=== PATIENT | male | born 1980 | race Caucasian/White ===

== ENCOUNTER 2022-08-14 15:53 | Emergency (ER) | payer SELFPAY ==
[2022-08-14] MEDS ORDERED: Lactated Ringers 1,000 ML IV ONE (16:22)
[2022-08-14] MEDS ORDERED: Ketorolac 15 MG/ML SDV IVPUSH ONE (17:23)
[2022-08-14] MEDS ORDERED: Sodium Chloride 0.9% 1,000 ML IV ONE (17:28)
[2022-08-14] MEDS ORDERED: Potassium Chloride 20 MEQ Tab.ER PO ONE (17:39)
[2022-08-14] MEDS ORDERED: Piperacillin/Tazobactam 4.5 GM in Sodium Chloride 0.9% 100 ML IV ONE (17:40)
[2022-08-14] MEDS ORDERED: Magnesium Sulfate/Water 2 GM in Premix Bag 1 BAG IV ONE (17:40)
[2022-08-14] MEDS ORDERED: Sodium Chloride 0.9% 10 ML Syringe FLUSH ONE (17:55)
[2022-08-14] MEDS ORDERED: Iopamidol 612 MG/ML 100 ML Bottle IVPUSH ONE ×2 (17:55→19:59)
[2022-08-14] MEDS ORDERED: propofoL 100 ML ONE (18:16)
[2022-08-14] MEDS ORDERED: Rocuronium 50 MG/5 ML Vial IVPUSH ONE (18:54)
[2022-08-14] MEDS ORDERED: Etomidate 2 MG/ML 20 ML SDV IVPUSH ONE (18:55)
[2022-08-14] MEDS ORDERED: Sodium Chloride 0.9% 1,000 ML ONE (19:06)
[2022-08-14] MEDS ORDERED: Sodium Bicarbonate 8.4% 50 MEQ/50 ML Syringe IVPUSH ONE (19:09)
[2022-08-14] MEDS ORDERED: Sodium Bicarbonate 8.4% 50 MEQ/50 ML SDV ONE (19:12)
[2022-08-14] MEDS ORDERED: Dextrose 5% in Water 1,000 ML ONE (19:12)
[2022-08-14] MEDS ORDERED: Sodium Bicarbonate 150 MEQ in Dextrose 5% in Water 1,000 ML IV SCH ×2 (19:45)
[2022-08-14] MEDS ORDERED: Levofloxacin/Dextrose 5%-Water 750 MG in Premix Bag 1 BAG IV ONE (19:49)
[2022-08-14] MEDS ORDERED: Vancomycin 2 GM in Sodium Chloride 0.9% 500 ML IV ONE (19:50)
[2022-08-14] MEDS ORDERED: Iopamidol 612 MG/ML 50 ML SDV IVPUSH ONE (19:59)
[2022-08-14] MEDS: Potassium Chloride 10 MEQ in Premix Bag 1 BAG IV SCH ×4 (20:41→23:36)
[2022-08-14] MEDS: propofoL 100 ML IV SCH (21:06)
[2022-08-14] MEDS ORDERED: Dextrose 5%-0.45% NaCl 1,000 ML IV SCH (21:15)
[2022-08-15] MEDS: propofoL 100 ML IV SCH (00:14)
== END 2022-08-15 00:56 ==
LOC: JD.ED 15:53
DX: A41.9 Sepsis, unspecified organism (principal); E11.10 Type 2 diabetes mellitus with ketoacidosis without coma; J96.00 Acute respiratory failure, unspecified whether with hypoxia or hypercapnia; E87.6 Hypokalemia; N49.3 Fournier gangrene; M86.172 Other acute osteomyelitis, left ankle and foot; Z79.899 Other long term (current) drug therapy; Z20.822 Contact with and (suspected) exposure to COVID-19
CPT/HCPCS: 31500; 36415; 36556; 36600; 43752; 51702; 70450; 71045; 71260; 73701; 74177; 80053; 80306; 80307; 82009; 82803; 82947; 83605; 83690; 83735; 85025; 85610; 87040; 87077; 87154; 87186; 87635; 96361; 96365; 96366; 96367; 96368; 96375; 99285; J1885; J1956; J2543; J2704; J3370; J3475; J3480; J3490; J7030; J7040; J7042; J7060; J7120; Q9967; 93010; 99291; U0002

== ENCOUNTER 2023-04-26 10:05 | Inpatient (IN) | payer BC, MEDICAID ==
[2023-04-26] MEDS ORDERED: Acetaminophen 325 MG Tab PO SCH (10:30)
[2023-04-26] MEDS ORDERED: Gabapentin 300 MG Cap PO SCH (10:30)
[2023-04-26] MEDS ORDERED: metroNIDAZOLE/Normal Saline 500 MG in Premix Bag 1 BAG IV SCH (10:30)
[2023-04-26] MEDS ORDERED: Lidocaine 1%/Sod Bicarbonate in NS 8.4% 1 ML Syringe IDERM PRN (10:52)
[2023-04-26] MEDS ORDERED: Sodium Chloride 0.9% 10 ML Syringe FLUSH PRN (10:52)
[2023-04-26] MEDS ORDERED: Lactated Ringers 1,000 ML IV SCH (11:00)
[2023-04-26] MEDS ORDERED: Midazolam 1 MG/ML 2 ML SDV ONE (11:40)
[2023-04-26] MEDS ORDERED: Propofol 200 MG/20 ML SDV ONE (11:43)
[2023-04-26] MEDS ORDERED: fentaNYL 250 MCG/5 ML SDV ONE (11:44)
[2023-04-26] MEDS ORDERED: Bupivacaine 0.5%/EPINEPHrine 1:200,000 50 ML MDV ONE (11:50)
[2023-04-26] MEDS ORDERED: Lidocaine 1% 30 ML SDV ONE (11:53)
[2023-04-26] MEDS ORDERED: Rocuronium 50 MG/5 ML Vial ONE ×2 (12:09→14:04)
[2023-04-26] MEDS ORDERED: Lidocaine 1% 5 ML VIAL ONE (12:09)
[2023-04-26] MEDS ORDERED: ceFAZolin 2 GM Vial ONE (12:30)
[2023-04-26] MEDS ORDERED: Succinylcholine 200 MG/10 ML MDV ONE (12:51)
[2023-04-26] MEDS ORDERED: Lactated Ringers 1,000 ML IV ONE (13:30)
[2023-04-26] MEDS ORDERED: Ondansetron 4 MG/2 ML SDV ONE (13:42)
[2023-04-26] MEDS ORDERED: Ketorolac 15 MG/ML SDV ONE (13:42)
[2023-04-26] MEDS ORDERED: Dexamethasone 4 MG/ML 5 ML MDV ONE (13:42)
[2023-04-26] MEDS ORDERED: Neostigmine Methylsulfate 10 MG/10 ML MDV ONE (14:57)
[2023-04-26] MEDS ORDERED: HYDROmorphone 0.5 MG/0.5 ML Syringe IVPUSH PRN (15:15)
[2023-04-26] MEDS ORDERED: Ondansetron 4 MG/2 ML SDV IVPUSH PRN (15:15)
[2023-04-26] MEDS ORDERED: fentaNYL 100 MCG/2 ML SDV IVPUSH PRN ×2 (15:15→15:21)
[2023-04-26] MEDS ORDERED: oxyCODONE 5 MG Tab PO PRN (15:20)
[2023-04-26] MEDS ORDERED: fentaNYL 100 MCG/2 ML SDV ONE (15:22)
[2023-04-26] MEDS ORDERED: Benzonatate 100 MG Cap PO PRN (15:22)
[2023-04-26] MEDS ORDERED: HYDROmorphone 0.5 MG/0.5 ML Syringe ONE (15:27)
[2023-04-26] MEDS: Acetaminophen 325 MG Tab PO SCH ×3 (17:07→23:50)
[2023-04-26] MEDS: Ondansetron 4 MG Tab.DIS PO SCH ×2 (17:07→23:52)
[2023-04-26] MEDS: HYDROmorphone 0.5 MG/0.5 ML Syringe IVPUSH PRN ×7 (17:07→23:51)
[2023-04-26] MEDS: metFORMIN 500 MG Tab PO SCH (17:08)
[2023-04-26] MEDS: Ibuprofen 600 MG Tab PO SCH (20:07)
[2023-04-26] MEDS: Gabapentin 600 MG Tab PO SCH (20:07)
[2023-04-26] MEDS ORDERED: Insulin Glargine,Human Rec. Analog 100 Units/ML 3 ML Pen SUBCUT SCH (21:00)
[2023-04-26] MEDS: traZODone 50 MG Tab PO PRN (22:44)
[2023-04-26] MEDS: hydrOXYzine HCl 10 MG Tab PO PRN (22:45)
[2023-04-27] MEDS: HYDROmorphone 0.5 MG/0.5 ML Syringe IVPUSH PRN ×6 (01:08→07:55)
[2023-04-27] MEDS: Ibuprofen 600 MG Tab PO SCH ×4 (01:08→20:40)
[2023-04-27] MEDS: Acetaminophen 325 MG Tab PO SCH ×5 (03:58→20:38)
[2023-04-27] MEDS: Levothyroxine 25 MCG Tab PO SCH (05:21)
[2023-04-27] MEDS: Ondansetron 4 MG Tab.DIS PO SCH ×3 (05:21→17:07)
[2023-04-27] MEDS: metFORMIN 500 MG Tab PO SCH ×2 (06:36→17:08)
[2023-04-27] MEDS: Heparin Sodium 5,000 Units/ML Vial SUBCUT SCH ×2 (07:58→15:14)
[2023-04-27] MEDS: Sertraline 50 MG Tab PO SCH (07:59)
[2023-04-27] MEDS: Cholecalciferol (Vitamin D3) 25 MCG Tab PO SCH (08:00)
[2023-04-27] MEDS: Rosuvastatin 10 MG Tab PO SCH (08:00)
[2023-04-27] MEDS: buPROPion 150 MG Tab.ER PO SCH (08:00)
[2023-04-27] MEDS: Gabapentin 600 MG Tab PO SCH ×3 (08:00→20:39)
[2023-04-27] MEDS ORDERED: LIRAGLUTIDE 3 MG/0.5 ML SQ SCH (09:00)
[2023-04-27] MEDS ORDERED: HYDROmorphone 0.5 MG/0.5 ML Syringe IVPUSH PRN (11:04)
[2023-04-27] MEDS: oxyCODONE 5 MG Tab PO PRN ×4 (11:12→21:24)
[2023-04-27] MEDS: Insulin Lispro 100 Unit/ML 3 ML KwikPen SUBCUT SCH ×2 (18:45→21:26)
[2023-04-27] MEDS: hydrOXYzine HCl 10 MG Tab PO PRN (20:40)
[2023-04-27] MEDS ORDERED: Insulin Lispro 100 Unit/ML 3 ML KwikPen SUBCUT SCH (21:00)
[2023-04-27] MEDS: traZODone 50 MG Tab PO PRN (21:25)
[2023-04-28] MEDS: Heparin Sodium 5,000 Units/ML Vial SUBCUT SCH ×3 (00:21→15:01)
[2023-04-28] MEDS: Acetaminophen 325 MG Tab PO SCH ×6 (00:22→20:08)
[2023-04-28] MEDS: Ondansetron 4 MG Tab.DIS PO SCH ×4 (00:22→18:55)
[2023-04-28] MEDS: oxyCODONE 5 MG Tab PO PRN ×5 (01:40→22:32)
[2023-04-28] MEDS: Ibuprofen 600 MG Tab PO SCH ×4 (01:41→20:06)
[2023-04-28] MEDS: hydrOXYzine HCl 10 MG Tab PO PRN (03:58)
[2023-04-28 06:09] LABS: BASOPHILS ABSOLUTE AUTO 0.01 K/mm3 (0.01-0.08); BASOPHILS PERCENT AUTO 0.1 % (0.1-1.2); EOSINOPHILS ABSOLUTE AUTO 0.22 K/mm3 (0.04-0.54); EOSINOPHILS PERCENT AUTO 2.1 (0.8-7.0); HEMATOCRIT 37.7 % (40.1-51.0); IMMATURE GRAN ABSOLUTE AUTO 0.01 K/mm3 (0.00-0.10); IMMATURE GRAN PERCENT AUTO 0.1 % (<=1.0); LYMPHOCYTES ABSOLUTE AUTO 1.49 K/mm3 (1.32-3.57); LYMPHOCYTES PERCENT AUTO 14.4 % (21.8-53.1); MEAN CORPUSCULAR HEMOGLOBIN 30.3 pg (25.7-32.2); MEAN CORPUSCULAR HGB CONC 32.1 g/dl (32.2-35.5); MEAN CORPUSCULAR VOLUME 94.3 fl (79.0-92.2); MEAN PLATELET VOLUME 10.6 fl (9.4-12.3); MONOCYTES ABSOLUTE AUTO 1.05 K/mm3 (0.30-0.82); MONOCYTES PERCENT AUTO 10.1 % (5.3-12.2); NEUTROPHILS ABSOLUTE AUTO 7.59 K/mm3 (1.78-5.38); NEUTROPHILS PERCENT AUTO 73.2 % (34.0-67.9); PLATELET COUNT,PLT 219 K/mm3 (163-337); WHITE BLOOD CELL COUNT,WBC 10.37 K/mm3 (4.23-9.07)
[2023-04-28 06:19] LABS: HEMOGLOBIN 12.1 gm/dl (13.7-17.5)
[2023-04-28] MEDS: metFORMIN 500 MG Tab PO SCH ×2 (06:45→18:55)
[2023-04-28] MEDS: Levothyroxine 25 MCG Tab PO SCH (06:46)
[2023-04-28] MEDS: Sertraline 50 MG Tab PO SCH (08:29)
[2023-04-28] MEDS: Gabapentin 600 MG Tab PO SCH ×3 (08:29→20:05)
[2023-04-28] MEDS: Cholecalciferol (Vitamin D3) 25 MCG Tab PO SCH (08:29)
[2023-04-28] MEDS: buPROPion 150 MG Tab.ER PO SCH (08:29)
[2023-04-28] MEDS: Insulin Lispro 100 Unit/ML 3 ML KwikPen SUBCUT SCH ×4 (08:32→22:44)
[2023-04-28] MEDS: Rosuvastatin 10 MG Tab PO SCH (09:00)
[2023-04-28] MEDS: Lidocaine 4% 1 each Patch TOP SCH (11:48)
[2023-04-28] MEDS: traZODone 50 MG Tab PO PRN (22:42)
[2023-04-29] MEDS: Ondansetron 4 MG Tab.DIS PO SCH ×2 (00:22→06:40)
[2023-04-29] MEDS: Acetaminophen 325 MG Tab PO SCH ×3 (00:22→08:25)
[2023-04-29] MEDS: Heparin Sodium 5,000 Units/ML Vial SUBCUT SCH ×2 (00:22→08:27)
[2023-04-29] MEDS: oxyCODONE 5 MG Tab PO PRN ×3 (02:18→10:56)
[2023-04-29] MEDS: Ibuprofen 600 MG Tab PO SCH ×2 (02:19→08:27)
[2023-04-29] MEDS: metFORMIN 500 MG Tab PO SCH (06:39)
[2023-04-29] MEDS: Levothyroxine 25 MCG Tab PO SCH (06:40)
[2023-04-29 08:03] LABS: ANION GAP 9.2 (5-15); BUN/CREATININE RATIO 12.3 (14-18); CALCIUM 8.3 mg/dL (8.5-10.1); CREATININE 1.3 mg/dL (0.7-1.3); EST CRCL DRUG DOSING (CG) 74.02 mL/min
[2023-04-29 08:06] LABS: POTASSIUM,K 4.2 mEq/L (3.5-5.1)
[2023-04-29] MEDS: buPROPion 150 MG Tab.ER PO SCH (08:25)
[2023-04-29] MEDS: Lidocaine 4% 1 each Patch TOP SCH (08:25)
[2023-04-29] MEDS: Rosuvastatin 10 MG Tab PO SCH (08:26)
[2023-04-29] MEDS: Gabapentin 600 MG Tab PO SCH (08:27)
[2023-04-29] MEDS: Cholecalciferol (Vitamin D3) 25 MCG Tab PO SCH (08:27)
[2023-04-29] MEDS: Sertraline 50 MG Tab PO SCH (08:27)
[2023-04-29] MEDS: Insulin Lispro 100 Unit/ML 3 ML KwikPen SUBCUT SCH (08:33)
== END 2023-04-29 11:10 | DRG 331 ==
LOC: JD.MS 10:11
PROVIDERS: ADMIT Surgery; ATTEND Surgery
PROC: 0D1N0Z4 Bypass Sigmoid Colon to Cutaneous, Open Approach (ICD-10-PCS; principal; 2023-04-26)
DX: Z43.3 Encounter for attention to colostomy (principal); N49.3 Fournier gangrene; N18.31 Chronic kidney disease, stage 3a; I12.9 Hypertensive chronic kidney disease with stage 1 through stage 4 chronic kidney disease, or unspecified chronic kidney disease; E11.65 Type 2 diabetes mellitus with hyperglycemia; E11.22 Type 2 diabetes mellitus with diabetic chronic kidney disease; D63.1 Anemia in chronic kidney disease; F41.9 Anxiety disorder, unspecified; F32.A Depression, unspecified; E66.9 Obesity, unspecified; E78.5 Hyperlipidemia, unspecified; Z68.37 Body mass index [BMI] 37.0-37.9, adult; Z79.4 Long term (current) use of insulin; Z79.899 Other long term (current) drug therapy; Z79.890 Hormone replacement therapy; Z89.512 Acquired absence of left leg below knee; Z98.890 Other specified postprocedural states
CPT/HCPCS: 00840; 00860; 36415; 80048; 82947; 85025; A9270-GY; J0330; J0690; J1100; J1170; J1644; J1815; J1815-GY; J1885; J2250; J2405; J2704; J2710; J3010; J3490; J7120

== ENCOUNTER 2023-08-23 22:05 | Emergency (ER) | payer MEDICAID ==
[2023-08-23 22:52] LABS: BASOPHILS PERCENT AUTO 0.4 % (0.0-1.0); EOSINOPHILS ABSOLUTE AUTO 0.1 K/mm3 (0.0-0.4); HEMATOCRIT 47.2 % (42.0-52.0); HEMOGLOBIN 15.7 gm/dl (14.0-18.0); IMMATURE GRAN ABSOLUTE AUTO 0.02 K/mm3 (0.00-0.05); IMMATURE GRAN PERCENT AUTO 0.3 % (0.0-0.4); LYMPHOCYTES ABSOLUTE AUTO 1.4 K/mm3 (1.0-4.8); LYMPHOCYTES PERCENT AUTO 18.3 % (24.0-44.0); MEAN CORPUSCULAR HEMOGLOBIN 30.2 pg (28.0-32.0); MEAN CORPUSCULAR HGB CONC 33.3 g/dl (32.0-36.0); MEAN CORPUSCULAR VOLUME 90.8 fl (83.0-99.0); MEAN PLATELET VOLUME 10.3 fl (9.4-12.4); MONOCYTES ABSOLUTE AUTO 0.6 K/mm3 (0.0-0.8); MONOCYTES PERCENT AUTO 7.2 % (0.0-8.0); NEUTROPHILS ABSOLUTE AUTO 5.7 K/mm3 (1.8-7.7); NEUTROPHILS PERCENT AUTO 72.8 % (41.0-71.0); PLATELET COUNT,PLT 261 K/mm3 (150-400); WHITE BLOOD CELL COUNT,WBC 7.82 K/mm3 (3.9-11.3)
[2023-08-23] MEDS ORDERED: Naloxone 0.4 MG/ML SDV IVPUSH PRN (23:01)
[2023-08-23] MEDS ORDERED: HYDROmorphone 1 MG/ML Syringe IM ONE (23:01)
[2023-08-23 23:14] LABS: ALBUMIN 4.3 g/dl (3.4-5.0); ANION GAP 16.1 (5-15); BILIRUBIN TOTAL 0.4 mg/dL (0.2-1.0); BUN/CREATININE RATIO 13.8 (14-18); C-REACTIVE PROTEIN 0.2 mg/dL (<1.0); CREATININE 1.6 mg/dL (0.7-1.3); EST CRCL DRUG DOSING (CG) 60.14 mL/min; POTASSIUM,K 5.1 mEq/L (3.5-5.1); PROTEIN TOTAL,TP 8.6 g/dl (6.4-8.2)
[2023-08-23 23:44] LABS: TSH 1.225 uIU/mL (0.358-3.74)
[2023-08-24] MEDS ORDERED: HYDROmorphone 1 MG/ML Syringe IM ONE (00:38)
== END 2023-08-24 01:17 | disposition home or self-care (01) ==
LOC: JD.ED 22:05
DX: G57.92 Unspecified mononeuropathy of left lower limb (principal); E11.65 Type 2 diabetes mellitus with hyperglycemia; I12.9 Hypertensive chronic kidney disease with stage 1 through stage 4 chronic kidney disease, or unspecified chronic kidney disease; N18.30 Chronic kidney disease, stage 3 unspecified; E11.22 Type 2 diabetes mellitus with diabetic chronic kidney disease; E66.9 Obesity, unspecified; Z79.4 Long term (current) use of insulin; Z79.899 Other long term (current) drug therapy
CPT/HCPCS: 36415; 80053; 83540; 83735; 84443; 85025; 85652; 86140; 96372; 99283; J1170; 99284

== ENCOUNTER 2023-09-22 12:08 | Emergency (ER) | payer MEDICAID ==
[2023-09-22] MEDS ORDERED: HYDROmorphone 1 MG/ML Syringe IM ONE ×2 (12:34→14:19)
[2023-09-22 13:02] LABS: BASOPHILS PERCENT AUTO 0.4 % (0.0-1.0); EOSINOPHILS ABSOLUTE AUTO 0.1 K/mm3 (0.0-0.4); EOSINOPHILS PERCENT AUTO 0.9 % (0.0-6.0); HEMATOCRIT 44.5 % (42.0-52.0); HEMOGLOBIN 15.4 gm/dl (14.0-18.0); IMMATURE GRAN ABSOLUTE AUTO 0.02 K/mm3 (0.00-0.05); IMMATURE GRAN PERCENT AUTO 0.2 % (0.0-0.4); LYMPHOCYTES ABSOLUTE AUTO 1.5 K/mm3 (1.0-4.8); LYMPHOCYTES PERCENT AUTO 16.6 % (24.0-44.0); MEAN CORPUSCULAR HEMOGLOBIN 30.9 pg (28.0-32.0); MEAN CORPUSCULAR HGB CONC 34.6 g/dl (32.0-36.0); MEAN CORPUSCULAR VOLUME 89.2 fl (83.0-99.0); MONOCYTES ABSOLUTE AUTO 0.6 K/mm3 (0.0-0.8); MONOCYTES PERCENT AUTO 6.6 % (0.0-8.0); NEUTROPHILS ABSOLUTE AUTO 6.8 K/mm3 (1.8-7.7); NEUTROPHILS PERCENT AUTO 75.3 % (41.0-71.0); PLATELET COUNT,PLT 275 K/mm3 (150-400); RED BLOOD CELL COUNT 4.99 M/mm3 (4.52-5.90); WHITE BLOOD CELL COUNT,WBC 9.09 K/mm3 (3.9-11.3)
[2023-09-22 13:20] LABS: ANION GAP 15.5 (5-15); BUN/CREATININE RATIO 18.6 (14-18); CALCIUM 9.5 mg/dL (8.5-10.1); CREATININE 1.4 mg/dL (0.7-1.3); EST CRCL DRUG DOSING (CG) 59.79 mL/min; POTASSIUM,K 4.5 mEq/L (3.5-5.1)
== END 2023-09-22 15:03 | disposition home or self-care (01) ==
LOC: JD.ED 12:08
DX: G54.6 Phantom limb syndrome with pain (principal); I12.9 Hypertensive chronic kidney disease with stage 1 through stage 4 chronic kidney disease, or unspecified chronic kidney disease; E11.22 Type 2 diabetes mellitus with diabetic chronic kidney disease; N18.30 Chronic kidney disease, stage 3 unspecified; E66.9 Obesity, unspecified; Z68.34 Body mass index [BMI] 34.0-34.9, adult; Z79.899 Other long term (current) drug therapy
CPT/HCPCS: 36415; 80048; 85025; 85652; 86140; 96372; 99283; J1170

== ENCOUNTER 2023-10-18 22:47 | Emergency (ER) | payer MEDICAID ==
[2023-10-18] MEDS ORDERED: Ketorolac 60 MG/2 ML SDV IM ONE (23:25)
[2023-10-18] MEDS ORDERED: HYDROmorphone 1 MG/ML Syringe IM ONE (23:25)
[2023-10-19] MEDS ORDERED: HYDROmorphone 0.5 MG/0.5 ML Syringe IM ONE (00:20)
== END 2023-10-19 01:19 | disposition home or self-care (01) ==
LOC: JD.ED 22:47
DX: G57.92 Unspecified mononeuropathy of left lower limb (principal); I10 Essential (primary) hypertension; E11.9 Type 2 diabetes mellitus without complications; E66.9 Obesity, unspecified; Z79.4 Long term (current) use of insulin; Z79.84 Long term (current) use of oral hypoglycemic drugs; Z79.899 Other long term (current) drug therapy
CPT/HCPCS: 96372; 99283; J1170; J1885; 99284

== ENCOUNTER 2024-01-02 22:41 | Emergency (ER) | payer MEDICAID ==
[2024-01-02] MEDS: Ketorolac 30 MG/ML SDV IVPUSH ONE (23:27)
[2024-01-02 23:31] LABS: BASOPHILS PERCENT AUTO 0.2 % (0.0-1.0); EOSINOPHILS ABSOLUTE AUTO 0.1 K/mm3 (0.0-0.4); EOSINOPHILS PERCENT AUTO 0.5 % (0.0-6.0); HEMATOCRIT 41.7 % (42.0-52.0); HEMOGLOBIN 14.3 gm/dl (14.0-18.0); IMMATURE GRAN ABSOLUTE AUTO 0.07 K/mm3 (0.00-0.05); IMMATURE GRAN PERCENT AUTO 0.4 % (0.0-0.4); LYMPHOCYTES ABSOLUTE AUTO 1.1 K/mm3 (1.0-4.8); LYMPHOCYTES PERCENT AUTO 6.2 % (24.0-44.0); MEAN CORPUSCULAR HEMOGLOBIN 31.4 pg (28.0-32.0); MEAN CORPUSCULAR HGB CONC 34.3 g/dl (32.0-36.0); MEAN CORPUSCULAR VOLUME 91.6 fl (83.0-99.0); MEAN PLATELET VOLUME 9.6 fl (9.4-12.4); MONOCYTES ABSOLUTE AUTO 1.1 K/mm3 (0.0-0.8); NEUTROPHILS ABSOLUTE AUTO 15.2 K/mm3 (1.8-7.7); NEUTROPHILS PERCENT AUTO 86.7 % (41.0-71.0); PLATELET COUNT,PLT 254 K/mm3 (150-400); RED BLOOD CELL COUNT 4.55 M/mm3 (4.52-5.90); WHITE BLOOD CELL COUNT,WBC 17.49 K/mm3 (3.9-11.3)
[2024-01-02] MEDS: Ondansetron 4 MG/2 ML SDV IVPUSH ONE (23:31)
[2024-01-02] MEDS: Sodium Chloride 0.9% 10 ML Syringe FLUSH PRN (23:34)
[2024-01-02 23:54] LABS: A/G RATIO 0.8 (1-2); ALBUMIN 3.4 g/dl (3.4-5.0); ANION GAP 22.1 (5-15); BILIRUBIN TOTAL 0.7 mg/dL (0.2-1.0); BUN/CREATININE RATIO 16.3 (14-18); CALCIUM 9.2 mg/dL (8.5-10.1); CREATININE 1.6 mg/dL (0.7-1.3); EST CRCL DRUG DOSING (CG) 59.53 mL/min; POTASSIUM,K 4.1 mEq/L (3.5-5.1); PROTEIN TOTAL,TP 7.6 g/dl (6.4-8.2)
[2024-01-02 23:55] LABS: CORONAVIRUS COVID-19 NAA POSITIVE (NEGATIVE); INFLUENZA A NAA NEGATIVE (NEGATIVE); RESPIRATORY SYNCYTIAL VIR NAA NEGATIVE (NEGATIVE)
[2024-01-02] MEDS ORDERED: Naloxone 0.4 MG/ML SDV IVPUSH PRN (23:57)
[2024-01-03 00:10] LABS: C-REACTIVE PROTEIN 33.8 mg/dL (<1.0)
[2024-01-03] MEDS: HYDROmorphone 1 MG/ML Syringe IVPUSH ONE ×2 (00:12→01:05)
[2024-01-03] MEDS: cefTRIAXone 2 GM in Sodium Chloride 0.9% 100 ML IV ONE (00:14)
[2024-01-03 00:38] LABS: APPEARANCE,URINE CLEAR (Clear); BILIRUBIN,URINE 1+ (Negative); COLOR,URINE YELLOW (Yellow); GLUCOSE,URINE 2+ (Negative); KETONES,URINE 3+ (Negative); LEUKOCYTE ESTERASE,URINE NEGATIVE (Negative); NITRITE,URINE NEGATIVE (Negative); OCCULT BLOOD,URINE 1+ (Negative); PH,URINE 5.5 (5.0-8.0); PROTEIN,URINE 2+ (Negative); UROBILINOGEN,URINE 0.2 (0.2-1.0)
[2024-01-03 00:50] LABS: BACTERIA,URINE FEW /hpf (FEW); COARSE GRANULAR CASTS,URINE 0-5 /hpf (0-5); EPITHELIAL CELLS,URINE 0-5 /hpf (0-5); HYALINE CASTS,URINE 0-5 /lpf (0-5); MUCUS,URINE NOT SEEN /hpf (FEW); RBC,URINE NOT SEEN /hpf (0-5); WBC,URINE 0-5 /hpf (0-5)
[2024-01-03] MEDS: Apixaban 5 MG Tab PO ONE (01:01)
== END 2024-01-03 01:09 | disposition home or self-care (01) ==
LOC: JD.ED 22:41
DX: I82.411 Acute embolism and thrombosis of right femoral vein (principal); E11.9 Type 2 diabetes mellitus without complications; E78.00 Pure hypercholesterolemia, unspecified; E66.9 Obesity, unspecified; Z79.84 Long term (current) use of oral hypoglycemic drugs; Z79.01 Long term (current) use of anticoagulants; Z79.899 Other long term (current) drug therapy; Z79.4 Long term (current) use of insulin
CPT/HCPCS: 0241U; 36415; 80053; 81001; 83735; 85025; 86140; 93970; 96365; 96375; 99284; A9270; J0696; J1170; J1885; J2405; J3490

== ENCOUNTER 2024-01-05 11:04 | Emergency (ER) | payer MEDICAID ==
[2024-01-05 12:24] LABS: BASOPHILS PERCENT AUTO 0.4 % (0.0-1.0); EOSINOPHILS ABSOLUTE AUTO 0.1 K/mm3 (0.0-0.4); EOSINOPHILS PERCENT AUTO 1.1 % (0.0-6.0); HEMOGLOBIN 14.6 gm/dl (14.0-18.0); IMMATURE GRAN ABSOLUTE AUTO 0.04 K/mm3 (0.00-0.05); IMMATURE GRAN PERCENT AUTO 0.5 % (0.0-0.4); LYMPHOCYTES ABSOLUTE AUTO 1.5 K/mm3 (1.0-4.8); LYMPHOCYTES PERCENT AUTO 18.2 % (24.0-44.0); MEAN CORPUSCULAR HEMOGLOBIN 31.2 pg (28.0-32.0); MEAN CORPUSCULAR VOLUME 91.9 fl (83.0-99.0); MEAN PLATELET VOLUME 10.8 fl (9.4-12.4); MONOCYTES ABSOLUTE AUTO 0.6 K/mm3 (0.0-0.8); MONOCYTES PERCENT AUTO 6.8 % (0.0-8.0); NEUTROPHILS ABSOLUTE AUTO 6.2 K/mm3 (1.8-7.7); PLATELET COUNT,PLT 219 K/mm3 (150-400); RED BLOOD CELL COUNT 4.68 M/mm3 (4.52-5.90); WHITE BLOOD CELL COUNT,WBC 8.41 K/mm3 (3.9-11.3)
[2024-01-05] MEDS: HYDROmorphone 0.5 MG/0.5 ML Syringe IVPUSH ONE (12:24)
[2024-01-05] MEDS: Ondansetron 4 MG/2 ML SDV IVPUSH ONE (12:24)
[2024-01-05] MEDS ORDERED: HYDROmorphone 0.5 MG/0.5 ML Syringe IVPUSH ONE (13:21)
[2024-01-05] MEDS: cefTRIAXone 1 GM in Sodium Chloride 0.9% 100 ML IV ONE (13:39)
[2024-01-05] MEDS: HYDROmorphone 1 MG/ML Syringe IVPUSH ONE (14:15)
== END 2024-01-05 14:34 | disposition home or self-care (01) ==
LOC: JD.ED 11:04
DX: I82.401 Acute embolism and thrombosis of unspecified deep veins of right lower extremity (principal); E78.00 Pure hypercholesterolemia, unspecified; E11.9 Type 2 diabetes mellitus without complications; E66.9 Obesity, unspecified; Z68.38 Body mass index [BMI] 38.0-38.9, adult; Z79.4 Long term (current) use of insulin; Z79.84 Long term (current) use of oral hypoglycemic drugs; Z79.01 Long term (current) use of anticoagulants; Z79.899 Other long term (current) drug therapy
CPT/HCPCS: 36415; 85025; 85652; 86140; 96365; 96375; 96376; 99283; J0696; J1170; J2405; J3490

== ENCOUNTER 2024-04-10 18:49 | Emergency (ER) | payer MEDICAID ==
[2024-04-10] MEDS ORDERED: Ketorolac 60 MG/2 ML SDV IM ONE (23:40)
== END 2024-04-11 00:38 | disposition home or self-care (01) ==
LOC: JD.ED 18:49
DX: M79.671 Pain in right foot (principal); E78.00 Pure hypercholesterolemia, unspecified; E11.9 Type 2 diabetes mellitus without complications; Z79.899 Other long term (current) drug therapy; Z79.01 Long term (current) use of anticoagulants; Z86.19 Personal history of other infectious and parasitic diseases; Z79.84 Long term (current) use of oral hypoglycemic drugs
CPT/HCPCS: 73630-26-RT; 73630-RT; 99282; 99283

== ENCOUNTER 2024-08-12 06:15 | Emergency (ER) | payer MEDICAID ==
[2024-08-12] MEDS ORDERED: HYDROmorphone 0.5 MG/0.5 ML Syringe IVPUSH PRN (07:18)
[2024-08-12 08:11] LABS: BASOPHILS PERCENT AUTO 0.3 % (0.0-1.0); EOSINOPHILS ABSOLUTE AUTO 0.1 K/mm3 (0.0-0.4); HEMATOCRIT 46.1 % (42.0-52.0); HEMOGLOBIN 15.5 gm/dl (14.0-18.0); IMMATURE GRAN ABSOLUTE AUTO 0.01 K/mm3 (0.00-0.05); IMMATURE GRAN PERCENT AUTO 0.1 % (0.0-0.4); LYMPHOCYTES ABSOLUTE AUTO 1.4 K/mm3 (1.0-4.8); LYMPHOCYTES PERCENT AUTO 19.4 % (24.0-44.0); MEAN CORPUSCULAR HGB CONC 33.6 g/dl (32.0-36.0); MEAN CORPUSCULAR VOLUME 89.3 fl (83.0-99.0); MEAN PLATELET VOLUME 10.3 fl (9.4-12.4); MONOCYTES ABSOLUTE AUTO 0.4 K/mm3 (0.0-0.8); MONOCYTES PERCENT AUTO 5.8 % (0.0-8.0); NEUTROPHILS ABSOLUTE AUTO 5.2 K/mm3 (1.8-7.7); NEUTROPHILS PERCENT AUTO 73.4 % (41.0-71.0); PLATELET COUNT,PLT 316 K/mm3 (150-400); RED BLOOD CELL COUNT 5.16 M/mm3 (4.52-5.90); WHITE BLOOD CELL COUNT,WBC 7.13 K/mm3 (3.9-11.3)
[2024-08-12] MEDS: Sodium Chloride 0.9% 500 ML IV SCH (08:18)
[2024-08-12] MEDS: HYDROmorphone 1 MG/ML Syringe IVPUSH PRN (08:18)
[2024-08-12] MEDS: Sodium Chloride 0.9% 10 ML Syringe FLUSH PRN (08:18)
[2024-08-12 08:30] LABS: A/G RATIO 1.1 (1-2); ALANINE AMINOTRANSFERASE,ALT 38 U/L (16-63); ALBUMIN 4.4 g/dl (3.4-5.0); ALKALINE PHOSPHATASE 127 U/L (46-116); ANION GAP 17.3 (5-15); ASPARTATE AMNIOTRANSFERASE,AST 17 U/L (15-37); BILIRUBIN TOTAL 0.6 mg/dL (0.2-1.0); BLOOD UREA NITROGEN,BUN 18 mg/dL (7-18); BUN/CREATININE RATIO 13.8 (14-18); CALCIUM 9.8 mg/dL (8.5-10.1); CARBON DIOXIDE,CO2 27 mEq/L (21-32); CHLORIDE,CL 99 mEq/L (98-107); CREATININE 1.3 mg/dL (0.7-1.3); ESTIMATED GFR 70 mL/min (>60); GLUCOSE RANDOM 286 mg/dL (70-99); POTASSIUM,K 4.3 mEq/L (3.5-5.1); PROTEIN TOTAL,TP 8.5 g/dl (6.4-8.2); SODIUM,NA 139 mEq/L (136-145)
[2024-08-12 08:31] LABS: TROPONIN I HIGH SENSITIVITY < 4 pg/mL (<=76)
[2024-08-12] MEDS: HYDROmorphone 0.5 MG/0.5 ML Syringe IVPUSH PRN (09:53)
== END 2024-08-12 10:29 | disposition home or self-care (01) ==
LOC: JD.ED 06:15
DX: R52 Pain, unspecified (principal); Z76.0 Encounter for issue of repeat prescription; E78.00 Pure hypercholesterolemia, unspecified; E11.9 Type 2 diabetes mellitus without complications; E66.9 Obesity, unspecified; Z79.01 Long term (current) use of anticoagulants; Z79.4 Long term (current) use of insulin; Z79.84 Long term (current) use of oral hypoglycemic drugs; Z79.899 Other long term (current) drug therapy
CPT/HCPCS: 36415; 71045; 80053; 84484; 85025; 87635; 93005; 96361; 96374; 96376; 99284; J1170; J3490; J7030; U0002

== ENCOUNTER 2025-08-02 20:40 | Emergency (ER) | payer MEDICARE ==
[2025-08-03 00:55] LABS: BASOPHILS ABSOLUTE AUTO 0.1 K/mm3 (0.0-0.2); BASOPHILS PERCENT AUTO 0.7 % (0.0-1.0); EOSINOPHILS ABSOLUTE AUTO 0.3 K/mm3 (0.0-0.4); EOSINOPHILS PERCENT AUTO 3.2 % (0.0-6.0); IMMATURE GRAN ABSOLUTE AUTO 0.02 K/mm3 (0.00-0.05); IMMATURE GRAN PERCENT AUTO 0.2 % (0.0-0.4); LYMPHOCYTES ABSOLUTE AUTO 1.8 K/mm3 (1.0-4.8); LYMPHOCYTES PERCENT AUTO 21.4 % (24.0-44.0); MEAN PLATELET VOLUME 10.0 fl (9.4-12.4); MONOCYTES ABSOLUTE AUTO 0.5 K/mm3 (0.0-0.8); MONOCYTES PERCENT AUTO 5.8 % (0.0-8.0); NEUTROPHILS ABSOLUTE AUTO 5.8 K/mm3 (1.8-7.7); NEUTROPHILS PERCENT AUTO 68.7 % (41.0-71.0); NRBC ABSOLUTE 0.00 (0.00-0.02); NRBC PERCENT 0.0 % (0.0-0.2); PLATELET COUNT,PLT 280 K/mm3 (150-400); RED BLOOD CELL COUNT 4.72 M/mm3 (4.52-5.90); WHITE BLOOD CELL COUNT,WBC 8.46 K/mm3 (3.9-11.3)
== END 2025-08-03 02:07 | disposition home or self-care (01) ==
LOC: JD.ED 20:40
DX: S91.311A Laceration without foreign body, right foot, initial encounter (principal); E78.00 Pure hypercholesterolemia, unspecified; E11.9 Type 2 diabetes mellitus without complications; Z86.16 Personal history of COVID-19; Z79.899 Other long term (current) drug therapy; X58.XXXA Exposure to other specified factors, initial encounter; Y93.89 Activity, other specified
CPT/HCPCS: 36415; 73630; 85025; 99283; A9270